=== PATIENT | male | born 1965 | race African-American/Black ===

== ENCOUNTER 2021-01-18 20:17 | Emergency (ER) | payer BC ==
[~2021-01-18] VITALS: Ht 167.6 cm; Wt 72.6 kg
[2021-01-18] MEDS ORDERED: TAMSULOSIN HCL0.4 MG PO (20:22)
[2021-01-18] MEDS ORDERED: AMLODIPINE BESY10 MG PO (20:22)
[2021-01-18] MEDS ORDERED: ROSUVASTATIN CA10 MG PO (20:23)
[2021-01-18] MEDS ORDERED: LOSARTAN POTASS50 MG PO (20:23)
[2021-01-18 22:36] VITALS: BP 145/93
== END 2021-01-18 22:36 | disposition home or self-care (01) ==
LOC: ER 20:17
DX: U07.1 COVID-19 (principal); R50.9 Fever, unspecified; R05 Cough; Z79.899 Other long term (current) drug therapy